=== PATIENT | female | born 1990 | race Caucasian/White ===

== ENCOUNTER 2017-03-07 11:49 | Emergency (ER) | payer MEDICAID, OTHER ==
[~2017-03-07] VITALS: Ht 165.1 cm; Wt 80.0 kg
[2017-03-07] MEDS ORDERED: KETOROLAC 30MG/ML VIAL IV STA (11:59)
[2017-03-07] MEDS ORDERED: METOCLOPRAMIDE HCL 10MG/2ML VIAL IV ONE (12:00)
[2017-03-07 12:19] VITALS: BP 108/62
== END 2017-03-07 13:11 | disposition left against medical advice (07) ==
LOC: ER 12:03
DX: R51 Headache (principal); M54.2 Cervicalgia; V43.52XA Car driver injured in collision with other type car in traffic accident, initial encounter; Y93.89 Activity, other specified; Y92.488 Other paved roadways as the place of occurrence of the external cause
CPT/HCPCS: 81025; 99284; Z7610